=== PATIENT | male | born 1935 | race Caucasian/White ===

== ENCOUNTER 2022-02-20 14:28 | Outpatient (CLI) | payer MEDICARE, SELFPAY ==
--- NOTE | ~2022-02-20 | MR_ITS ---
EXAMINATION: MR lumbar spine wo con DATE: 02/20/2022 15:11 INDICATION: Spinal stenosis. TECHNIQUE: Magnetic resonance imaging (MRI) of the lumbar spine was performed without intravenous con trast. Sequences included sagittal T2-weighted FSE, sagittal T2-weighted FS FSE, sagittal T1-weighted FSE, and axial T2-weighted FSE. COMPARISON: None FINDINGS: There is 4 degrees levocurvature of lumbar spine. There is 3 mm retrolisthesis of L2 on L3, L3 on L4, L4 on L5, and L5 on S1. There are Schmorl's nodes at most levels. There is mildly decrease d disc height at L1-L2, moderately decreased disc height at L2-L3, and mildly decreased disc height a t L3-L4 with disc calcifications. There is severely decreased disc height at L4-L5 and L5-S1 with end plate remodeling. The distal spinal cord signal intensity is normal. The conus medullaris is at L1. T here is a fusiform aneurysm of infrarenal aorta measuring 3.9 cm. There is a 15 mm cyst in left kidne y. The following disc levels are specifically discussed: L1-L2: The disc does not extend beyond the endplate margin. There is mild bilateral facet joint osteo arthritis. There is no neural foraminal stenosis. There is no central canal stenosis. L2-L3: The disc does not extend beyond the endplate margin. There is mild bilateral facet joint osteo arthritis. There is no neural foraminal stenosis. There is no central canal stenosis. L3-L4: The disc is bulging. There is moderate bilateral facet joint osteoarthritis. There is moderate right and mild left neural foraminal stenosis. There is no central canal stenosis. L4-L5: The disc is bulging and has an annular fissure. There is moderate bilateral facet joint osteoa rthritis. There is moderate bilateral neural foraminal stenosis. There is mild central canal stenosis . L5-S1: The disc is bulging and has an annular fissure. There is moderate right and severe left facet joint osteoarthritis. There is moderate bilateral neural foraminal stenosis. There is mild central ca nal stenosis. IMPRESSION: 1. Severe lower lumbar spondylosis. 2. 3.9 cm fusiform aneurysm of infrarenal aorta. Reviewed, dictated and finalized at location A.
== END 2022-02-20 14:29 | disposition home or self-care (01) ==
PROVIDERS: Visit Provider Orthopaedic Surgery
DX: M48.00 Spinal stenosis, site unspecified (principal); M47.896 Other spondylosis, lumbar region; I71.4 Abdominal aortic aneurysm, without rupture
CPT/HCPCS: 72148